=== PATIENT | female | born 1980 | race Caucasian/White ===

== ENCOUNTER 2018-06-15 13:13 | Emergency (ER) | payer BC ==
[2018-06-15 13:32] VITALS: BMI 25.2
[2018-06-15] MEDS ORDERED: ONDANSETRON 4 MG/2 ML VIAL IVPB ONE (13:38)
[2018-06-15] MEDS ORDERED: SODIUM CHLORIDE 1,000 ML IV ONE (13:38)
--- NOTE | 2018-06-15 13:39 | PDOC ---
History of Present Illness - General Chief Complaint: Pain Stated Complaint: [facility] Time Seen by Provider: 06/15/18 13:23 History Source: Patient Exam Limitations: No Limitations - History of Present Illness Travel History: No Initial Comments: 06/15/18 13:36 37y F hx of pancreatitis (when shew as 16) presents with vomiting/watery diarrhea since last night arund 8pm. pt endorses mild intermittent LLQ pain x 2 weeks and had scheduled a GI appointment for evaluation but never made it. There was no other associated symptoms with the pain including fever/chills, n/v , radiation of the pain, dairrhea, melena, bpr, vag discharge, vag bleeding, dysuria/hematuria. The pain would come for a few minutse at a time and seemed to come with food intake. Last night, the pt ntos some pain i the RLQ associated nbnb vomiting (just food contents) and non bloody non melantoic diarrhea (profuse watery/yellow). she visited her mother who was admitted to the hospital for a viral illness (had diarrhea/vomiting as well) on thursday, the day priro to the onset of her vomiting/dairrhea. pt denies any f/c, recent travel, back pain, cp, sob. is fine without any symptmos. no abd surgery in the past she went to urgent care anw as referred to the ED for evaluation denies ETOH, ivdu, drug abuse, smoking Past History - Past Medical History Allergies/Adverse Reactions: Allergies Allergy/AdvReac Type Severity Reaction Status Date / Time pineapple Allergy Intermediate Itching Verified 06/15/18 13:32 Penicillins Allergy Mild Rash Verified 06/15/18 13:15 Home Medications: Ambulatory Orders Ondansetron [Zofran -] 4 mg PO TID PRN #14 tablet 06/15/18 COPD: No Other medical history: MIGRAINES - Suicide/Smoking/Psychosocial Hx Smoking History: Former smoker Have you smoked in the past 12 months: No If you are a former smoker, when did you quit?: 15 YEARS AGO Information on smoking cessation initiated: No Hx Alcohol Use: No Drug/Substance Use Hx: No Substance Use Type: None Review of Systems - Review of Systems Able to Perform ROS?: Yes Comments:: 06/15/18 14:18 Constitutional - no reported Fever, Chills, HEENT: no reported vision changes, sore throat Respiratory: no reported cough, sob, hemoptysis Cardiac: no reported chest pain, palpitations, light headedness, leg swelling Abd/GI: +abd pain, nausea, vomiting, no reported blood per rectum, melena, diarrhea : no reported dysuria, frequency, discharge Musculskelatal - no reported back pain, joint swelling skin - no reported bruising, erythema, rash neurological: no reported headache, numbness, focal weakness, tingling, ataxia, hematologic: no reported easy bruising, easy bleeding *Physical Exam - Vital Signs Last Vital Signs Temp Pulse Resp BP Pulse Ox 99.3 F 105 H 16 123/81 100 06/15/18 13:15 06/15/18 13:15 06/15/18 13:15 06/15/18 13:15 06/15/18 13:15 - Physical Exam Comments: 06/15/18 14:19 GENERAL: The patient is awake, alert, and fully oriented, Nontoxic - in no acute distress. HEAD: Normocephalic, atraumatic. EYES: extraocular movements intact, sclera anicteric, conjunctiva clear. ENT: Normal voice, Moist mucous membranes. NECK: Normal range of motion, supple LUNGS: Breath sounds equal, clear to auscultation bilaterally. No wheezes, no rhonchi, no rales. HEART: Regular rate and rhythm, normal S1 and S2 without murmur, rub or gallop. ABDOMEN: Soft, mild diffuse tenderness (llq, rlq), no rebound/guarding, neg murphies, mild ttp at mcburneys, no cva tendenrses EXTREMITIES: Normal range of motion, NEUROLOGICAL: No facial assymetry, Normal speech, PSYCH: Normal mood, normal affect. SKIN: Warm, Dry, normal turgor, Moderate Sedation - Procedure Monitoring Vital Signs: Procedure Monitoring Vital Signs Temperature 99.3 F 06/15/18 13:15 Pulse Rate 105 H 06/15/18 13:15 Respiratory Rate 16 06/15/18 13:15 Blood Pressure 123/81 06/15/18 13:15 O2 Sat by Pulse Oximetry (%) 100 06/15/18 13:15 ED Treatment Course - LABORATORY CBC & Chemistry Diagram: 06/15/18 13:54 06/15/18 13:54 Medical Decision Making - Medical Decision Making 06/15/18 14:20 ddx gastroenteritis, appendicits, diverticulitis, uti, , pyelo will ck labs, ua will give zofran, fluids, morphine for pain willr eassess if pt persistently tender or in pain consider imaging 06/15/18 15:43 labs noted for mild leukoctyosis UA suspect may be contaminant -w as not a clean catch, and no urinary sypmtmos pt still with pain will obtain CT to ro diverticulitis labs noted for mild leukocytisis 06/15/18 17:[address] shows l sided ovarian cyst - suspect this may have been the cause of the pts pain the past week. 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 I answered all of the patient's questions. The patient was satisfied with the care received and felt comfortable with the discharge plan and treatment plan. The patient will call their primary care physician within 24 hours to arrange follow-up and will return to the Emergency Department with any new, persistent or worsening symptoms. *DC/Admit/Observation/Transfer Diagnosis at time of Disposition: Gastroenteritis Ovarian cyst Qualifiers: Laterality: left Qualified Code(s): N83.202 - Unspecified ovarian cyst, left side - Discharge Dispostion Disposition: HOME Condition at time of disposition: Improved Decision to Admit order: No - Prescriptions Prescriptions: Ondansetron [Zofran -] 4 mg PO TID PRN #14 tablet PRN Reason: Nausea - Referrals Referrals: Briana Cordon MD [Non Staff, Medical] - - Patient Instructions Printed Discharge Instructions: DI for Viral Gastroenteritis -- Adult Additional Instructions: Return to the emergency department immediately with ANY new, persistent or worsening symptoms including worsening abdominal pain, fevers, inability to tolerate oral intake, chest pain, shortness of breath or any other concerns. There was an ovarian cyst on the left side present on your cat scan I suspect this may be the cause of your abdominal pain for the past week please see your cardiology consultants for further evaluation. Take motrin or tylenol for your pain. Stay well hydrated. You MUST call and follow up with your doctor sarahi the next week. Your emergency department visit is not complete without a followup with your doctor for reevaluation. Please make sure your doctor reviews the results of your emergency evaluation. - Post Discharge Activity
[2018-06-15 13:45] LABS: HCG,QUALITATIVE URINE Negative
[2018-06-15 13:49] LABS: URINE APPEARANCE Clear; URINE BILIRUBIN Negative (NEGATIVE); URINE COLOR Yellow; URINE GLUCOSE (UA) Negative (NEGATIVE); URINE KETONE Negative (NEGATIVE); URINE LEUK ESTERASE 1+ (NEGATIVE); URINE NITRITE Negative (NEGATIVE); URINE PROTEIN Negative (NEGATIVE); URINE UROBILINOGEN 0.2 (0.2-1.0)
[2018-06-15] MEDS ORDERED: ONDANSETRON 4 MG/2 ML VIAL ONE (13:51)
[2018-06-15] MEDS ORDERED: morphine CARPU-JECT 2 MG/1 ML DISP.SYRIN IVPUSH ONE (14:10)
[2018-06-15 14:11] LABS: BASO % 1.2 % (0-2.0); EOS % 0.1 % (0-4.5); HEMATOCRIT 39.4 % (32.4-45.2); HEMOGLOBIN 12.8 GM/dl (10.7-15.3); LYMPH % 8.7 % (8-40); MCH 30.3 pg (25.7-33.7); MCHC 32.6 g/dl (32.0-36.0); MEAN CELL VOLUME 93.1 fl (80-96); MEAN PLT VOLUME 9.3 fl (7.5-11.1); MONO % 4.8 % (3.8-10.2); NEUT % 85.2 % (42.8-82.8); PLATELET COUNT 239 K/MM3 (134-434); RBC 4.24 M/mm3 (3.60-5.2); RDW 11.9 % (11.6-15.6)
[2018-06-15] MEDS ORDERED: morphine SULFATE 4 MG/ML VIAL ONE (14:13)
[2018-06-15 14:14] LABS: EPI CELLS FEW /HPF; URINE BACTERIA 2+ /hpf (NEGATIVE); URINE MUCUS 1+; URINE RBC 0-2 /hpf (0-3)
[2018-06-15 14:19] LABS: ALK PHOS 52 U/L (32-92); ANION GAP 8 MMOL/L (8-16); BILIRUBIN,TOTAL 0.7 mg/dl (0.2-1.0); BLOOD UREA NITROGEN 10 mg/dl (7-18); CALCIUM 7.9 mg/dl (8.4-10.2); CHLORIDE 102 mmol/L (98-107); CO2 21 mmol/L (22-28); CREATININE 0.7 mg/dl (0.6-1.3); GLUCOSE,RANDOM 110 mg/dl (74-106); POTASSIUM 3.4 mmol/L (3.5-5.1); SGOT/AST 20 U/L (10-42); SGPT/ALT 22 U/L (10-40); SODIUM 131 mmol/L (136-145); TOT PROT 7.4 g/dl (6.4-8.3)
[2018-06-15 17:32] VITALS: BP 102/46; PULSE 85; TEMP 98.2
[2018-06-15] MEDS ORDERED: ACETAMINOPHEN 325 MG TABLET (FP) PO ONE (17:41)
[2018-06-15] MEDS ORDERED: ACETAMINOPHEN 325 MG TABLET (FP) ONE (17:43)
== END 2018-06-15 17:57 | disposition home or self-care (01) ==
LOC: FER 13:13
PROC: 3E033GC Introduction of Other Therapeutic Substance into Peripheral Vein, Percutaneous Approach (ICD-10-PCS; principal; 2018-06-15)
PROC: 3E033NZ Introduction of Analgesics, Hypnotics, Sedatives into Peripheral Vein, Percutaneous Approach (ICD-10-PCS; 2018-06-15)
PROC: 3E0337Z Introduction of Electrolytic and Water Balance Substance into Peripheral Vein, Percutaneous Approach (ICD-10-PCS; 2018-06-15)
DX: N83.202 Unspecified ovarian cyst, left side (principal); K52.9 Noninfective gastroenteritis and colitis, unspecified
CPT/HCPCS: 36415; 74177-TC; 80053; 81003; 81015; 83690; 84703; 85025; 99283-25; J7030